=== PATIENT | male | born 1970 | race Caucasian/White ===

== ENCOUNTER 2020-01-15 03:39 | Emergency (ER) | payer MEDICAID ==
[~2020-01-15] VITALS: Ht 182.9 cm; Wt 74.8 kg
[2020-01-15 03:45] VITALS: BP 121/81
[2020-01-15] MEDS ORDERED: fentaNYL 100 mcg/2 mL IV ONE (03:45)
--- NOTE | 2020-01-15 03:45 | NUR ---
ED Nurse Note: Patient KATIE [id number] from home c/o left plank pain that shoots to his legs. Denies difficulty urinating. No nausea, vomiting, diarrhea. Afebrile. Not in any distress. ERMD at bedside.
--- NOTE | 2020-01-15 03:47 | NUR ---
ED Nurse Note: IV line established. Blood and urine specimen collected and sent to lab.
[2020-01-15 03:59] VITALS: BP 121/81
--- NOTE | 2020-01-15 03:59 | NUR ---
AMA: Patient wants to leave against medical advice. Stated that he doesnt want to stay at the hospital and just go home instead. ERMD notified. Explained risk and benefits, verbally understood. ID band and IV line removed. Pt alert and orientedx4, ambulatory and left with all personal belongings. Addendum: 01/15/20 at 0422 by ROLANDO ED Nurse Note: AMa form signed by the patient.
--- NOTE | 2020-01-15 04:04 | Emergency Room Report ---
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 Patient states that it was "gas" but states that it didn't resolve so he called 911 and was brought in by EMS. Pt co mild sob. He denies any fever or chills. He denies any nausea or vomiting. He denies any dysuria or hematuria. He denies any diarrhea or constipation. He denies any trauma. Allergies: Uncoded Allergies: SULFA (Allergy, Unknown, 10/29/19) COVID-19 Screening Contact w/high risk pt: No Recent Travel to affected area: No Experienced COVID-19 symptoms?: No Patient History Past Medical History: other - Lupus, DVT/PE Past Surgical History: none Social History: Reports: smoking, drug use - marijuana and cocaine Review of Systems All Other Systems: negative except mentioned in HPI Physical Exam Vital Signs Date Time Temp Pulse Resp B/P (MAP) Pulse Ox O2 Delivery O2 Flow Rate FiO2 01/15/20 03:40 98.4 119 20 121/81 (94) 97 Room Air Sp02 EP Interpretation: reviewed, normal General Appearance: no apparent distress, alert, GCS 15, non-toxic Head: normocephalic, atraumatic Eyes: bilateral eye normal inspection, bilateral eye PERRL ENT: hearing grossly normal, normal pharynx, no angioedema, normal voice Neck: full range of motion, supple/symm/no masses Respiratory: lungs clear, normal breath sounds, speaking full sentences, other - L anterior ribs 10-12 ttp no crepitus Cardiovascular #1: no edema, tachycardia Gastrointestinal: normal bowel sounds, soft, non-distended, no guarding, no rebound, other - mild LUQ ttp Rectal: deferred Genitourinary: normal inspection, no CVA tenderness Musculoskeletal: back normal, normal range of motion, gait/station normal, non- tender, other - no calf tenderness Neurologic: alert, motor strength/tone normal, oriented x3, sensory intact, responsive, speech normal Skin: no rash Lymphatic: no adenopathy Medical Decision Making Diagnostic Impression: Primary Impression: Left upper quadrant abdominal pain Additional Impression: Rib pain on left side ER Course Patient refusing all ER care. The patient is of adult age and has sound mind with no evidence of altered mental status suggesting metabolic or infections etiologies. I explained in layman's terms the risk of leaving against medical advise including and significant comorbidity. The patient was given reasonable options. This was explained in front of the patient and the bedside nurse RN. The AMA for was signed and witnessed by a nurse and patient. Last Vital Signs Date Time Temp Pulse Resp B/P (MAP) Pulse Ox O2 Delivery O2 Flow Rate FiO2 01/15/20 03:40 98.4 119 20 121/81 (94) 97 Room Air Disposition: AGAINST MEDICAL ADVICE Condition: Unknown Referrals: [facility],REFERRING (PCP) Angelia Durand M.D. Jan 15, 2020 04:04
== END 2020-01-15 04:00 | disposition left against medical advice (07) ==
LOC: EDUNIT# 03:39 → EDBD 03:39 → EMR 03:51
DX: R10.12 Left upper quadrant pain (principal); R07.81 Pleurodynia; Z86.711 Personal history of pulmonary embolism; Z86.718 Personal history of other venous thrombosis and embolism; F17.200 Nicotine dependence, unspecified, uncomplicated; R06.02 Shortness of breath
CPT/HCPCS: J3010; Z7502; 99282